=== PATIENT | male | born 1955 | race Hispanic/Latino ===

== ENCOUNTER 2021-02-24 09:00 | Inpatient (IN) | payer MEDICARE ==
[~2021-02-24] VITALS: Ht 185.4 cm; Wt 121.6 kg
[~2021-02-24 09:00] MED LIST: AMLO-258 PO; POTA2TAB18 PO
[2021-02-24 09:38] LABS: BASOPHILS % (AUTO) 0.5 % (0.0-5.0); EOSINOPHILS % (AUTO) 1.7 % (0.0-8.0); LYMPHOCYTES % (AUTO) 24.5 % (21.0-51.0); MEAN CORPUSCULAR HEMOGLOBIN 29.3 pg (27.0-33.0); MEAN CORPUSCULAR HGB CONC 31.7 g/dL (32.0-36.0); MEAN CORPUSCULAR VOLUME 92.2 fL (79-99); MONOCYTES % (AUTO) 10.5 % (3.0-13.0); NEUTROPHILS % (AUTO) 62.5 % (40.0-77.0); PLATELET COUNT (AUTO) 237 K/uL (130-400); RED BLOOD CELL COUNT(AUTO) 4.99 MIL/uL (4.50-6.20); RED CELL DISTRIBUTION WIDTH 13.3 % (11.0-15.5); WHITE BLOOD COUNT (AUTO) 7.7 K/uL (4.8-10.8)
[2021-02-24 09:40] LABS: APPEARANCE,URINE Clear (CLEAR); BILIRUBIN,URINE Negative (NEGATIVE); COLOR,URINE Yellow (YELLOW); GLUCOSE, URINE (UA) Negative (NEGATIVE); KETONES,URINE Negative (NEGATIVE); LEUKOCYTE ESTERASE ,URINE Negative (NEGATIVE); NITRATE,URINE Negative (NEGATIVE); OCCULT BLOOD,URINE Negative (NEGATIVE); PH,URINE 5.5 (5.0-8.0); PROTEIN,URINE Negative (NEGATIVE); UROBILINOGEN,URINE 0.2 mg/dL (0.2-1.0)
[2021-02-24 09:47] LABS: CREATININE 0.9 mg/dL (0.5-1.5); POTASSIUM 3.8 mmol/L (3.5-5.1)
[2021-02-24 10:07] LABS: INR 1.11 (0.85-1.15)
[2021-02-24 14:48] VITALS: BP 136/70
[2021-02-24] MEDS ORDERED: METO-409 PO (15:06)
[2021-02-24] MEDS ORDERED: APIX5TAB PO (15:06)
[2021-02-24] MEDS ORDERED: LISI40TA9 PO (15:06)
[2021-02-24] MEDS ORDERED: TAMS-1 PO (15:06)
[2021-02-24] MEDS ORDERED: SIMV-46 PO (15:06)
[2021-02-25] VITALS (23 sets, daily range): BP systolic 105–146; BP diastolic 57–83
[2021-02-25] MEDS ORDERED: CEFAZOLIN SODIUM 1 GM VIAL ONE ×2 (08:22→12:48)
[2021-02-25] MEDS ORDERED: LACTATED RINGERS 1000ML 1,000 ML IV ONE (08:22)
[2021-02-25] MEDS ORDERED: ROCURONIUM 10MG/1ML SYR 10 MG/ML ML ONE (13:22)
[2021-02-25] MEDS ORDERED: FENTANYL CITRATE PF 50 MCG/1 ML 2ML VIAL ONE (13:22)
[2021-02-25] MEDS ORDERED: MIDAZOLAM HCL 1 MG/ML 2ML VIAL ONE (13:22)
[2021-02-25] MEDS ORDERED: PROPOFOL 10 MG/ML 20ML VIAL IV ONE (13:22)
[2021-02-25] MEDS ORDERED: LIDOCAINE HCL-MPF 1% 5ML AMP IJ ONE (13:22)
[2021-02-25] MEDS ORDERED: TRANEXAMIC ACID 1000MG/10ML ONE (13:39)
[2021-02-25] MEDS ORDERED: ONDANSETRON 4MG INJ IVP PRN (16:30)
[2021-02-25] MEDS ORDERED: FERROUS FUMARATE 324 MG TABLET PO PRN (16:30)
[2021-02-25] MEDS ORDERED: KCL 20 MEQ ERTAB PO PRN (16:30)
[2021-02-25] MEDS ORDERED: TRAMADOL HCL 50 MG TABLET PO PRN (16:30)
[2021-02-25] MEDS ORDERED: LIDOCAINE HCL-MPF 1% 2ML VIAL IV PRN (16:30)
[2021-02-25] MEDS ORDERED: POTASSIUM CHLORIDE 20MEQ/100ML 100 ML IV PRN (16:30)
[2021-02-25] MEDS ORDERED: DiphenhydrAMINE HCL 50 MG/ML VIAL IVP PRN (16:30)
[2021-02-25] MEDS ORDERED: TEMAZEPAM 15 MG CAPSULE PO PRN (16:30)
[2021-02-25] MEDS ORDERED: CALCIUM CARB 500MG PO PRN (16:30)
[2021-02-25] MEDS ORDERED: POTASSIUM CHLORIDE 10% ELIXIR 20 MEQ/15 ML UDCUP PO PRN (16:30)
[2021-02-25] MEDS: 0.9%NACL 1000ML 1,000 ML IV SCH (16:30)
[2021-02-25] MEDS ORDERED: OXYCODONE HCL 5 MG TAB PO PRN ×2 (16:30)
[2021-02-25] MEDS ORDERED: MEPERIDINE-PF 25 MG/ML SYG ONE ×2 (17:36→17:49)
[2021-02-25] MEDS ORDERED: APIXABAN 5 MG TABLET PO SCH (21:00)
[2021-02-25] MEDS: PREGABALIN 25 MG CAP PO SCH (21:46)
[2021-02-25] MEDS: SIMVASTATIN 20 MG TABLET PO SCH (21:48)
[2021-02-25] MEDS: FAMOTIDINE 20MG TAB PO SCH (21:48)
[2021-02-25] MEDS: CELECOXIB 200 MG CAP PO SCH (21:48)
[2021-02-25] MEDS: CEFAZOLIN 3GM /D5W 100ML 100 ML IV SCH (21:49)
[2021-02-26] MEDS: ACETAMINOPHEN 500 MG TABLET PO SCH ×3 (00:30→16:57)
[2021-02-26] MEDS: 0.9%NACL 1000ML 1,000 ML IV SCH ×2 (02:30→11:17)
[2021-02-26 04:00] VITALS: BP 131/70
[2021-02-26] MEDS: KETOROLAC 15MG/ML VIAL (15MG/ML) IV PRN ×2 (04:26→11:49)
[2021-02-26 04:37] LABS: MEAN CORPUSCULAR HEMOGLOBIN 29.7 pg (27.0-33.0); MEAN CORPUSCULAR HGB CONC 32.4 g/dL (32.0-36.0); MEAN CORPUSCULAR VOLUME 91.7 fL (79-99); RED BLOOD CELL COUNT(AUTO) 4.58 MIL/uL (4.50-6.20); RED CELL DISTRIBUTION WIDTH 13.2 % (11.0-15.5); WHITE BLOOD COUNT (AUTO) 12.2 K/uL (4.8-10.8)
[2021-02-26 04:55] LABS: CREATININE 0.7 mg/dL (0.5-1.5)
[2021-02-26] MEDS: CEFAZOLIN 3GM /D5W 100ML 100 ML IV SCH (06:44)
[2021-02-26 07:25] VITALS: BP 145/72
[2021-02-26] MEDS: POTASSIUM GLUCONATE 595 MG PO SCH (09:00)
[2021-02-26] MEDS: TAMSULOSIN HCL 0.4 MG CAP.ER.24H PO SCH (09:00)
[2021-02-26] MEDS ORDERED: TAMSULOSIN HCL 0.4 MG CAP.ER.24H PO SCH (09:00)
[2021-02-26] MEDS: POLYETHYLENE GLYCOL 3350 17 GM POWD.PACK PO SCH (09:18)
[2021-02-26] MEDS: CELECOXIB 200 MG CAP PO SCH ×2 (09:28→20:36)
[2021-02-26] MEDS: APIXABAN 5 MG TABLET PO SCH ×2 (09:29→20:37)
[2021-02-26] MEDS: PREGABALIN 25 MG CAP PO SCH ×2 (09:30→20:37)
[2021-02-26] MEDS: AMLODIPINE 5 MG TAB PO SCH (09:31)
[2021-02-26] MEDS: LISINOPRIL 40 MG TABLET PO SCH (09:31)
[2021-02-26] MEDS: FAMOTIDINE 20MG TAB PO SCH ×2 (09:31→20:37)
[2021-02-26] MEDS: METOPROLOL SUCCINATE 50 MG TAB.SR.24H PO SCH (09:34)
[2021-02-26 11:50] VITALS: BP 130/66
[2021-02-26 15:51] VITALS: BP 127/62
[2021-02-26 19:00] VITALS: BP 138/66
[2021-02-26] MEDS: SIMVASTATIN 20 MG TABLET PO SCH (20:37)
[2021-02-27] VITALS: BP 119/62
[2021-02-27] MEDS: ACETAMINOPHEN 500 MG TABLET PO SCH ×3 (00:30→17:08)
[2021-02-27 04:00] VITALS: BP 147/72
[2021-02-27 07:59] VITALS: BP 165/74
[2021-02-27] MEDS: KETOROLAC 15MG/ML VIAL (15MG/ML) IV PRN ×2 (08:21→13:18)
[2021-02-27] MEDS: APIXABAN 5 MG TABLET PO SCH ×2 (08:59→20:16)
[2021-02-27] MEDS: METOPROLOL SUCCINATE 50 MG TAB.SR.24H PO SCH (08:59)
[2021-02-27] MEDS: AMLODIPINE 5 MG TAB PO SCH (08:59)
[2021-02-27] MEDS: FAMOTIDINE 20MG TAB PO SCH ×2 (08:59→20:16)
[2021-02-27] MEDS: TAMSULOSIN HCL 0.4 MG CAP.ER.24H PO SCH (08:59)
[2021-02-27] MEDS: POLYETHYLENE GLYCOL 3350 17 GM POWD.PACK PO SCH (09:00)
[2021-02-27] MEDS: CELECOXIB 200 MG CAP PO SCH ×2 (09:00→20:15)
[2021-02-27] MEDS: PREGABALIN 25 MG CAP PO SCH ×2 (09:00→20:16)
[2021-02-27] MEDS: LISINOPRIL 40 MG TABLET PO SCH (09:00)
[2021-02-27] MEDS: POTASSIUM GLUCONATE 595 MG PO SCH (09:00)
[2021-02-27 11:31] VITALS: BP 136/64
[2021-02-27] MEDS ORDERED: LACTULOSE 20 GM/30 ML UDCUP PO PRN (14:30)
[2021-02-27 19:32] VITALS: BP 104/57
[2021-02-27] MEDS: SIMVASTATIN 20 MG TABLET PO SCH (20:16)
[2021-02-27 23:31] VITALS: BP 101/49
[2021-02-28] MEDS: ACETAMINOPHEN 500 MG TABLET PO SCH ×3 (00:48→16:21)
[2021-02-28 03:39] VITALS: BP 100/50
[2021-02-28 08:00] VITALS: BP 121/64
[2021-02-28] MEDS: POTASSIUM GLUCONATE 595 MG PO SCH (09:00)
[2021-02-28] MEDS: POLYETHYLENE GLYCOL 3350 17 GM POWD.PACK PO SCH (09:00)
[2021-02-28] MEDS: CELECOXIB 200 MG CAP PO SCH (09:17)
[2021-02-28] MEDS: TAMSULOSIN HCL 0.4 MG CAP.ER.24H PO SCH (09:17)
[2021-02-28] MEDS: APIXABAN 5 MG TABLET PO SCH (09:18)
[2021-02-28] MEDS: LISINOPRIL 40 MG TABLET PO SCH (09:18)
[2021-02-28] MEDS: PREGABALIN 25 MG CAP PO SCH (09:18)
[2021-02-28] MEDS: METOPROLOL SUCCINATE 50 MG TAB.SR.24H PO SCH (09:18)
[2021-02-28] MEDS: FAMOTIDINE 20MG TAB PO SCH (09:18)
[2021-02-28] MEDS: AMLODIPINE 5 MG TAB PO SCH (09:18)
[2021-02-28] MEDS: KETOROLAC 15MG/ML VIAL (15MG/ML) IV PRN (09:19)
[2021-02-28 11:49] VITALS: BP 107/58
[2021-02-28] MEDS ORDERED: HYDR-4060 PO (15:34)
[2021-02-28] MEDS ORDERED: BISACODYL 10 MG SUPP.RECT RC PRN (16:30)
== END 2021-02-28 19:20 | disposition home health service (06) | DRG 470 ==
LOC: EDSTATUS 09:00 → DAHIP 02-25 07:23 → UNDOADMOB 02-25 07:23 → 3AH 02-25 07:24 → OBSVTOIN 02-25 07:24 → 3AH 02-25 18:15 → DAHIP 02-25 18:15 → OBSVTOIN 02-27 16:09 → INTOOBSV 02-27 16:09
PROVIDERS: ADMIT Orthopaedic Surgery; ATTEND Orthopaedic Surgery
PROC: 0SRC0J9 Replacement of Right Knee Joint with Synthetic Substitute, Cemented, Open Approach (ICD-10-PCS; principal; 2021-02-25 14:31)
DX: M17.11 Unilateral primary osteoarthritis, right knee (principal); Z20.822 Contact with and (suspected) exposure to COVID-19; I10 Essential (primary) hypertension; Z79.01 Long term (current) use of anticoagulants; Z87.891 Personal history of nicotine dependence; Z86.73 Personal history of transient ischemic attack (TIA), and cerebral infarction without residual deficits; Z83.3 Family history of diabetes mellitus; Z82.49 Family history of ischemic heart disease and other diseases of the circulatory system
CPT/HCPCS: 36415; 80048; 81003; 85014; 85018; 85025; 85027; 85610; 87088; 87635; 87641; 88305; 88311; 97039; G0378; J0690; J1885; J2175; J2250; J2704; J3010; J3490; J7120

== ENCOUNTER 2021-03-25 18:37 | Observation (INO) | payer MEDICARE ==
[~2021-03-25] VITALS: Ht 185.4 cm; Wt 114.3 kg
[~2021-03-25 18:37] MED LIST changes: +APIX5TAB PO; +HYDR-4060 PO; +LISI40TA9 PO; +METO-409 PO; +SIMV-46 PO; +TAMS-1 PO
[2021-03-25 20:20] LABS: CREATININE 1.6 mg/dL (0.5-1.5); POTASSIUM 3.8 mmol/L (3.5-5.1)
[2021-03-25 20:24] LABS: ALBUMIN 3.6 g/dL (3.5-5.0); BILIRUBIN,TOTAL 0.4 mg/dL (0.2-1.0); TOTAL PROTEIN, SERUM 7.4 g/dL (6.0-8.3)
[2021-03-25 21:10] LABS: BASOPHILS % (AUTO) 0.4 % (0.0-5.0); HEMATOCRIT 37.2 % (42-54); LYMPHOCYTES % (AUTO) 23.6 % (21.0-51.0); MEAN CORPUSCULAR HEMOGLOBIN 28.8 pg (27.0-33.0); MEAN CORPUSCULAR HGB CONC 31.7 g/dL (32.0-36.0); MEAN CORPUSCULAR VOLUME 90.7 fL (79-99); MONOCYTES % (AUTO) 9.3 % (3.0-13.0); NEUTROPHILS % (AUTO) 64.4 % (40.0-77.0); PLATELET COUNT (AUTO) 284 K/uL (130-400)
[2021-03-25 21:24] LABS: INR 1.23 (0.85-1.15); PROTHROMBIN TIME 13.2 SEC (9.6-11.6)
[2021-03-25] MEDS ORDERED: MORPHINE 2 MG SYG IV PRN (21:30)
[2021-03-25] MEDS: CLINDAMYCIN IVPB 600MG/50ML 50 ML IV SCH ×2 (21:30→22:19)
[2021-03-25] MEDS ORDERED: NITROGLYCERIN 0.4 MG SL TAB SL PRN (21:30)
[2021-03-25] MEDS ORDERED: ONDANSETRON 4MG INJ IV PRN (21:30)
[2021-03-25] MEDS ORDERED: CLINDAMYCIN IVPB 900MG/50ML 50 ML IV ONE (21:30)
[2021-03-25] MEDS ORDERED: ACETAMINOPHEN 325 MG TAB PO PRN (21:30)
[2021-03-25] MEDS ORDERED: LACTULOSE 20 GM/30 ML UDCUP PO PRN (21:30)
[2021-03-25] MEDS ORDERED: LACTATED RINGERS 1000ML 1,000 ML IV SCH (21:30)
[2021-03-25] MEDS ORDERED: MAG/ALUM/SIMETH 30 ML UDCUP PO PRN (21:30)
[2021-03-25] MEDS ORDERED: LISI20TA24 PO (22:08)
[2021-03-25] MEDS ORDERED: SULF1TAB41 PO (22:08)
[2021-03-25] MEDS ORDERED: SIMV40TA59 PO (22:08)
[2021-03-25] MEDS ORDERED: METO-408 PO (22:08)
[2021-03-25 22:16] LABS: ERYTHROCYTE SEDIMENTATION RATE 36 MM/HR (0-20)
[2021-03-26 00:15] VITALS: BP 125/45
[2021-03-26] MEDS: ACETAMINOPHEN 325 MG TAB PO PRN ×2 (00:38→14:51)
[2021-03-26 04:29] VITALS: BP 120/55
[2021-03-26] MEDS: CLINDAMYCIN IVPB 600MG/50ML 50 ML IV SCH ×2 (05:52→14:39)
[2021-03-26 07:55] VITALS: BP 125/65
[2021-03-26] MEDS ORDERED: METOPROLOL SUCCINATE 50 MG TAB.SR.24H PO SCH (09:00)
[2021-03-26] MEDS ORDERED: AMLODIPINE 5 MG TAB PO SCH ×2 (09:00)
[2021-03-26] MEDS ORDERED: FAMOTIDINE 20MG VIAL IV SCH (09:00)
[2021-03-26] MEDS ORDERED: TAMSULOSIN HCL 0.4 MG CAP.ER.24H PO SCH (09:00)
[2021-03-26] MEDS ORDERED: LISINOPRIL 10 MG TABLET PO SCH (09:00)
[2021-03-26] MEDS ORDERED: NEOMY SULF/BACITRAC ZN/POLY OINT 30GM TUBE TP SCH ×2 (10:00→21:00)
[2021-03-26] MEDS ORDERED: CLIN-141 PO (11:38)
[2021-03-26 12:27] VITALS: BP 127/62
[2021-03-26] MEDS ORDERED: LISI10TA24 PO (13:16)
[2021-03-26 16:34] VITALS: BP 137/74
[2021-03-26] MEDS ORDERED: SIMVASTATIN 20 MG TABLET PO SCH (21:00)
[2021-03-26] MEDS ORDERED: LISINOPRIL 20 MG TABLET PO SCH (21:00)
[2021-03-27] MEDS ORDERED: NEOMY SULF/BACITRAC ZN/POLY OINT 30GM TUBE TP SCH (09:00)
== END 2021-03-26 18:45 | disposition home or self-care (01) ==
LOC: EDH 18:37 → EDHIP 21:26 → 3AH 23:19
PROVIDERS: ADMIT Internal Medicine; ATTEND Internal Medicine
DX: L03.115 Cellulitis of right lower limb (principal); I10 Essential (primary) hypertension; E78.5 Hyperlipidemia, unspecified; N40.0 Benign prostatic hyperplasia without lower urinary tract symptoms; I48.0 Paroxysmal atrial fibrillation; M19.90 Unspecified osteoarthritis, unspecified site; N28.9 Disorder of kidney and ureter, unspecified; E66.01 Morbid (severe) obesity due to excess calories; Z86.73 Personal history of transient ischemic attack (TIA), and cerebral infarction without residual deficits; Z96.651 Presence of right artificial knee joint; Z79.899 Other long term (current) drug therapy; Z79.01 Long term (current) use of anticoagulants; Z86.718 Personal history of other venous thrombosis and embolism
CPT/HCPCS: 36415; 73562; 80053; 83605; 84484; 85025; 85610; 85651; 86140; 87040 ×2; 87070; 87076; 93970; 96365; 96366 ×2; 96375; 97116; 97161; 99284; G0378 ×20; J3490 ×5; J7120 ×2

== ENCOUNTER 2021-09-21 08:00 | Inpatient (IN) | payer MEDICARE ==
[~2021-09-21] VITALS: Ht 185.4 cm; Wt 118.8 kg
[~2021-09-21 08:00] MED LIST changes: -AMLO-258 PO; -HYDR-4060 PO; +LISI10TA24 PO; -LISI40TA9 PO; +METO-408 PO; -METO-409 PO; -POTA2TAB18 PO; -SIMV-46 PO; +SIMV40TA59 PO
[2021-09-21 09:40] VITALS: BP 170/82
[2021-09-21 10:20] LABS: APPEARANCE,URINE Clear (CLEAR); BILIRUBIN,URINE Negative (NEGATIVE); COLOR,URINE Yellow (YELLOW); GLUCOSE, URINE (UA) Negative (NEGATIVE); KETONES,URINE Negative (NEGATIVE); LEUKOCYTE ESTERASE ,URINE Negative (NEGATIVE); NITRATE,URINE Negative (NEGATIVE); OCCULT BLOOD,URINE Negative (NEGATIVE); PROTEIN,URINE Negative (NEGATIVE); UROBILINOGEN,URINE 0.2 mg/dL (0.2-1.0)
[2021-09-21 10:24] LABS: INR 1.11 (0.85-1.15); PROTHROMBIN TIME 11.4 SEC (9.6-11.6)
[2021-09-23] VITALS (24 sets, daily range): BP systolic 142–168; BP diastolic 66–92
[2021-09-23] MEDS ORDERED: CEFAZOLIN SODIUM 3 GM VIAL IV SCH (06:00)
[2021-09-23] MEDS ORDERED: CEFAZOLIN SODIUM 1 GM VIAL ONE ×2 (08:16→12:14)
[2021-09-23] MEDS ORDERED: LACTATED RINGERS 1000ML 1,000 ML IV ONE (08:16)
[2021-09-23] MEDS: CEFAZOLIN SODIUM 1 GM VIAL IVP SCH ×3 (09:30→19:24)
[2021-09-23] MEDS ORDERED: CELECOXIB 200 MG CAP ONE ×2 (09:56→19:20)
[2021-09-23] MEDS ORDERED: METOCLOPRAMIDE 10 MG/2 ML VIAL ONE (09:57)
[2021-09-23] MEDS ORDERED: KETOROLAC 15MG/ML VIAL (15MG/ML) ONE (09:57)
[2021-09-23] MEDS ORDERED: ACETAMINOPHEN 500 MG TABLET ONE (09:57)
[2021-09-23] MEDS ORDERED: TRANEXAMIC ACID 1000MG/10ML ONE (12:14)
[2021-09-23] MEDS ORDERED: SUCCINYLCHOLINE CHLORIDE 20 MG/ML 10 ML VIAL ONE (12:27)
[2021-09-23] MEDS ORDERED: LIDOCAINE PF 100MG/5ML (2%) SYRINGE 5ML ONE (12:27)
[2021-09-23] MEDS ORDERED: SUCCINYLCHOLINE 200MG/10ML SYR ONE (12:27)
[2021-09-23] MEDS ORDERED: ROCURONIUM 10MG/1ML SYR 10 MG/ML ML ONE (12:28)
[2021-09-23] MEDS ORDERED: ONDANSETRON 4MG INJ ONE (12:28)
[2021-09-23] MEDS ORDERED: MIDAZOLAM HCL 1 MG/ML 2ML VIAL ONE (12:28)
[2021-09-23] MEDS ORDERED: FENTANYL CITRATE PF 50 MCG/1 ML 2ML VIAL ONE (12:28)
[2021-09-23] MEDS ORDERED: NEOSTIGMINE 5MG/5ML SYR IV ONE (12:28)
[2021-09-23] MEDS ORDERED: GLYCOPYRROLATE 1 MG/5 ML SYRINGE ONE (12:28)
[2021-09-23] MEDS ORDERED: PROPOFOL 10 MG/ML 20ML VIAL IV ONE ×2 (12:28→13:30)
[2021-09-23] MEDS ORDERED: ROPIVACAINE 0.5% 5MG/ML 30ML IJ ONE (12:32)
[2021-09-23] MEDS ORDERED: ATROPINE 1MG SYG IVP ONE (12:44)
[2021-09-23] MEDS ORDERED: EPHEDRINE SULFATE 50 MG/ML AMPULE ONE (13:22)
[2021-09-23] MEDS ORDERED: MEPERIDINE-PF 25 MG/ML SYG ONE ×4 (14:01→16:09)
[2021-09-23] MEDS ORDERED: ONDANSETRON 4MG INJ IVP PRN (15:00)
[2021-09-23] MEDS: 0.9%NACL 1000ML 1,000 ML IV SCH ×2 (15:00→22:34)
[2021-09-23] MEDS ORDERED: DiphenhydrAMINE HCL 50 MG/ML VIAL IVP PRN (15:00)
[2021-09-23] MEDS ORDERED: LIDOCAINE HCL-MPF 1% 2ML VIAL IV PRN (15:00)
[2021-09-23] MEDS ORDERED: TEMAZEPAM 15 MG CAPSULE PO PRN (15:00)
[2021-09-23] MEDS ORDERED: POTASSIUM CHLORIDE 10% ELIXIR 20 MEQ/15 ML UDCUP PO PRN (15:00)
[2021-09-23] MEDS ORDERED: POTASSIUM CHLORIDE 20MEQ/100ML 100 ML IV PRN (15:00)
[2021-09-23] MEDS ORDERED: CALCIUM CARB 500MG PO PRN (15:00)
[2021-09-23] MEDS ORDERED: FERROUS FUMARATE 324 MG TABLET PO PRN (15:00)
[2021-09-23] MEDS ORDERED: TRAMADOL HCL 50 MG TABLET PO PRN (15:00)
[2021-09-23] MEDS ORDERED: KCL 20 MEQ ERTAB PO PRN (15:00)
[2021-09-23] MEDS: ACETAMINOPHEN 500 MG TABLET PO SCH ×2 (15:00→19:24)
[2021-09-23] MEDS ORDERED: OXYCODONE HCL 5 MG TAB PO PRN ×2 (15:00)
[2021-09-23] MEDS ORDERED: FAMOTIDINE 20MG TAB ONE (19:20)
[2021-09-23] MEDS: FAMOTIDINE 20MG TAB PO SCH (19:24)
[2021-09-23] MEDS: CELECOXIB 200 MG CAP PO SCH (19:24)
[2021-09-23] MEDS: KETOROLAC 15MG/ML VIAL (15MG/ML) IV PRN (22:39)
[2021-09-24 00:27] VITALS: BP 142/76
[2021-09-24] MEDS: CEFAZOLIN SODIUM 1 GM VIAL IVP SCH (03:42)
[2021-09-24 04:01] LABS: HEMATOCRIT 39.3 % (42-54); MEAN CORPUSCULAR HEMOGLOBIN 29.5 pg (27.0-33.0); MEAN CORPUSCULAR HGB CONC 32.8 g/dL (32.0-36.0); MEAN CORPUSCULAR VOLUME 89.7 fL (79-99); RED BLOOD CELL COUNT(AUTO) 4.38 MIL/uL (4.50-6.20); RED CELL DISTRIBUTION WIDTH 15.1 % (11.0-15.5); WHITE BLOOD COUNT (AUTO) 9.6 K/uL (4.8-10.8)
[2021-09-24 04:17] LABS: CREATININE 0.8 mg/dL (0.5-1.5); POTASSIUM 3.9 mmol/L (3.5-5.1)
[2021-09-24 04:35] VITALS: BP 153/69
[2021-09-24] MEDS: ACETAMINOPHEN 500 MG TABLET PO SCH ×3 (06:08→21:51)
[2021-09-24 07:15] VITALS: BP 156/75
[2021-09-24] MEDS: KETOROLAC 15MG/ML VIAL (15MG/ML) IV PRN ×2 (08:03→14:21)
[2021-09-24] MEDS ORDERED: TAMSULOSIN HCL 0.4 MG CAP.ER.24H PO SCH ×2 (09:00)
[2021-09-24] MEDS: FAMOTIDINE 20MG TAB PO SCH ×2 (09:45→21:50)
[2021-09-24] MEDS: CELECOXIB 200 MG CAP PO SCH ×2 (09:45→21:52)
[2021-09-24] MEDS: APIXABAN 5 MG TABLET PO SCH ×2 (09:45→21:52)
[2021-09-24] MEDS: LISINOPRIL 10 MG TABLET PO SCH (09:45)
[2021-09-24] MEDS: METOPROLOL SUCCINATE 50 MG TAB.SR.24H PO SCH (09:47)
[2021-09-24] MEDS: POLYETHYLENE GLYCOL 3350 17 GM POWD.PACK PO SCH (09:47)
[2021-09-24] MEDS: 0.9%NACL 1000ML 1,000 ML IV SCH (11:00)
[2021-09-24 11:40] VITALS: BP 114/77
[2021-09-24 15:10] VITALS: BP 169/71
[2021-09-24 19:59] VITALS: BP 191/85
[2021-09-24] MEDS: TAMSULOSIN HCL 0.4 MG CAP.ER.24H PO SCH (21:51)
[2021-09-24] MEDS: SIMVASTATIN 20 MG TABLET PO SCH (21:52)
[2021-09-25 00:18] VITALS: BP 145/77
[2021-09-25 04:00] VITALS: BP 143/78
[2021-09-25] MEDS: ACETAMINOPHEN 500 MG TABLET PO SCH ×3 (06:33→23:00)
[2021-09-25] MEDS: KETOROLAC 15MG/ML VIAL (15MG/ML) IV PRN ×2 (06:37→22:58)
[2021-09-25 08:00] VITALS: BP 115/89
[2021-09-25] MEDS: POLYETHYLENE GLYCOL 3350 17 GM POWD.PACK PO SCH (09:45)
[2021-09-25] MEDS: LISINOPRIL 10 MG TABLET PO SCH (09:45)
[2021-09-25] MEDS: METOPROLOL SUCCINATE 50 MG TAB.SR.24H PO SCH (09:46)
[2021-09-25] MEDS: CELECOXIB 200 MG CAP PO SCH ×2 (09:46→20:10)
[2021-09-25] MEDS: APIXABAN 5 MG TABLET PO SCH ×2 (09:46→20:10)
[2021-09-25] MEDS: TAMSULOSIN HCL 0.4 MG CAP.ER.24H PO SCH ×2 (09:46→20:10)
[2021-09-25] MEDS: FAMOTIDINE 20MG TAB PO SCH ×2 (09:46→20:10)
[2021-09-25 12:00] VITALS: BP 162/83
[2021-09-25 16:00] VITALS: BP 126/66
[2021-09-25 20:00] VITALS: BP 141/77
[2021-09-25] MEDS: SIMVASTATIN 20 MG TABLET PO SCH (20:10)
[2021-09-26 00:08] VITALS: BP 140/71
[2021-09-26 04:00] VITALS: BP 147/80
[2021-09-26] MEDS: ACETAMINOPHEN 500 MG TABLET PO SCH ×2 (06:03→15:32)
[2021-09-26 08:00] VITALS: BP 154/79
[2021-09-26] MEDS: APIXABAN 5 MG TABLET PO SCH (08:36)
[2021-09-26] MEDS: METOPROLOL SUCCINATE 50 MG TAB.SR.24H PO SCH (08:39)
[2021-09-26] MEDS: TAMSULOSIN HCL 0.4 MG CAP.ER.24H PO SCH (08:39)
[2021-09-26] MEDS: CELECOXIB 200 MG CAP PO SCH (08:40)
[2021-09-26] MEDS: LISINOPRIL 10 MG TABLET PO SCH (08:40)
[2021-09-26] MEDS: POLYETHYLENE GLYCOL 3350 17 GM POWD.PACK PO SCH (08:41)
[2021-09-26] MEDS: FAMOTIDINE 20MG TAB PO SCH (08:42)
[2021-09-26 12:00] VITALS: BP 134/69
[2021-09-26] MEDS ORDERED: BISACODYL 10 MG SUPP.RECT RC PRN (15:00)
[2021-09-26 16:00] VITALS: BP 150/74
[2021-09-26 20:04] VITALS: BP 146/74
== END 2021-09-26 21:20 | DRG 470 ==
LOC: EDSTATUS 08:00 → OBSVTOIN 09-23 07:53 → DAHIP 09-23 07:53 → 4AH 09-23 16:45
PROVIDERS: ADMIT Orthopaedic Surgery; ATTEND Orthopaedic Surgery
PROC: 0SRD0J9 Replacement of Left Knee Joint with Synthetic Substitute, Cemented, Open Approach (ICD-10-PCS; principal; 2021-09-23 12:27)
DX: M17.12 Unilateral primary osteoarthritis, left knee (principal); D64.9 Anemia, unspecified; I10 Essential (primary) hypertension; Z20.822 Contact with and (suspected) exposure to COVID-19; N40.1 Benign prostatic hyperplasia with lower urinary tract symptoms; Z96.651 Presence of right artificial knee joint; Z86.73 Personal history of transient ischemic attack (TIA), and cerebral infarction without residual deficits; Z82.49 Family history of ischemic heart disease and other diseases of the circulatory system; Z83.3 Family history of diabetes mellitus; Z90.49 Acquired absence of other specified parts of digestive tract; Z87.891 Personal history of nicotine dependence
CPT/HCPCS: 36415; 80048; 81003; 85027; 85610; 87088; 87635; 87641; 88305; 88311; 97039; G0378; J0330; J0461; J0690; J1885; J2001; J2175; J2250; J2405; J2704; J2710; J2765; J2795; J3010; J3490; J7120

== ENCOUNTER → 2023-03-29 | Outpatient (CLI) | payer MEDICARE | END | disposition home or self-care (01) | LOC: RAH 12:30 | PROVIDERS: ATTEND Student in an Organized Health Care Education/Training Program | DX: M17.11 Unilateral primary osteoarthritis, right knee (principal); T84.84XA Pain due to internal orthopedic prosthetic devices, implants and grafts, initial encounter; Y92.9 Unspecified place or not applicable | CPT/HCPCS: 78315; A9503 ==